=== PATIENT | female | born 1990 | race Caucasian/White ===

== ENCOUNTER → 2019-04-07 | Outpatient (CLI) | payer OTHER ==
--- NOTE | 2019-04-07 17:07 | REP ---
COOKIE SWALLOW The procedure was performed under the direct supervision of Dr. Crowell. The procedure was performed with Maria Fowler from speech pathology present. 5 ml aliquots of thin, pudding, mixed fruit, soft solid and solid consistency barium was administered. There is no evidence of penetration or aspiration. A detailed report of this examination will be provided by speech pathology. 0.9 minutes of fluoroscopy time was utilized for this procedure. Electronically Signed by FRANNY Escamilla 04/07/2019 03:09 P Electronically Signed by Og Crowell MD 04/07/2019 04:58 P
== END ==
LOC: M ST 13:53
PROVIDERS: ATTEND Emergency Medicine
DX: R13.10 Dysphagia, unspecified (principal)